=== PATIENT | female | born 1950 | race Caucasian/White ===

== ENCOUNTER 2016-07-01 09:11 | Inpatient (IN) | payer OTHER ==
[~2016-07-01] VITALS: Ht 160 cm; Wt 76.2 kg
--- NOTE | ~2016-07-01 | EKG ---
[place] [address] [facility] [place] [address] ELECTROCARDIOGRAM REPORT Name: JESUS REZAETTA Kristy Room #: 541-P ADM IN M.R.#: [id number] Admission: 07/02/16 Attend Phys: Hamida Ritter Discharge: Date of : 52 Report #: [id number] THIS REPORT FOR: //name// [facility] ED Test Date: 2016-07-01 Test Time: 10:17:21 Pat Name: ESTEE REZA Department: Room: 541 Gender: F [employer]ist: Kit COOLEY : 1950 Requested By: Dedrick Mccartney Order Number: [id number] MD: Nikolay Desai Measurements Intervals [place] Rate: 61 P: 61 MS: 130 QRS: 14 QRSD: 98 T: 23 QT: 389 QTc: 392 Interpretive Statements Sinus rhythm Abnormal R-wave progression, early transition No previous ECG available for comparison Electronically Signed On 07-03-2016 11:27:28 CDT by Nikolay Desai [email or web address] <ELECTRONICALLY SIGNED> By: Nikolay Desai MD, [facility] 07/03/16 1127 [id number] Nikolay Desai MD, FACC /EPI
[~2016-07-01 09:11] MED LIST: DIAMOX SEQUELS500 MG PO
[2016-07-01 09:13] VITALS: BP 138/61
[2016-07-01 10:12] LABS: URINE BILIRUBIN NEGATIVE (Negative); URINE BLOOD TRACE (Negative); URINE COLOR YELLOW; URINE GLUCOSE-RANDOM* NEGATIVE (Negative); URINE KETONES NEGATIVE (Negative); URINE NITRITE NEGATIVE (Negative); URINE PROTEIN (DIPSTICK) NEGATIVE (Negative); URINE UROBILINOGEN 0.2 E.U./dl (0.2-1.0)
[2016-07-01 10:23] LABS: BACTERIA 1-9 Few /HPF (None Seen); CASTS None Seen /LPF (None Seen); CRYSTALS None Seen /LPF (None Seen); SQUAMOUS 0-3 Few /LPF (0-3); URINE RBC 0-2 Rare /HPF (0-2); URINE WBC 6-15 Few /HPF (0-5)
[2016-07-01 10:24] LABS: ABSOLUTE NEUTROPHILS 7.5 thou/uL (1.4-8.2); BASOPHILS 0.5 % (0.0-2.0); EOSINOPHILS 0.6 % (0.0-3.0); HEMATOCRIT 38.7 % (37.0-47.0); HEMOGLOBIN 13.1 gm/dL (12.0-15.0); LYMPHOCYTES 14.6 % (24.0-44.0); MCH 30.1 pg (26.0-34.0); MCHC 33.9 g/dL (28.0-37.0); MCV 88.7 fL (80.0-100.0); MONOCYTES 5.7 % (1.0-8.0); PLATELET COUNT 221 thou/uL (150-400); POLYS 78.6 % (36.0-66.0); RBC 4.36 mil/uL (4.20-5.00); RDW 13.2 % (10.5-14.5); WBC 9.6 thou/uL (4.0-11.0)
[2016-07-01 10:25] LABS: MANUAL DIFF NO
[2016-07-01 10:41] LABS: ALBUMIN 3.8 g/dL (3.4-5.0); ALKALINE PHOSPHATASE 86 U/L (46-116); ANION GAP 11 mmol/L (7-16); APTT 27.4 Seconds (24.5-32.8); BUN 40 mg/dL (7-18); CALCIUM 9.5 mg/dL (8.5-10.1); CHLORIDE 97 mmol/L (98-107); CO2 27 mmol/L (21-32); CREATININE 1.5 mg/dL (0.6-1.0); GLUCOSE 186 mg/dL (74-106); MAGNESIUM 1.8 mg/dL (1.8-2.4); POTASSIUM 4.1 mmol/L (3.5-5.1); PROTIME 10.7 Seconds (9.3-11.4); SGOT 22 U/L (15-37); SGPT 34 U/L (30-65); SODIUM 135 mmol/L (136-145); TOTAL BILIRUBIN 0.5 mg/dL (<0.1-1.0); TOTAL PROTEIN 7.9 g/dL (6.4-8.2); TROPONIN-I < 0.04 ng/mL (<0.04-0.07)
[2016-07-01 12:17] VITALS: BP 139/71
[2016-07-01 20:59] VITALS: BP 119/54
[2016-07-02] MEDS ORDERED: AMLODIPINE BESY10 MG PO (06:46)
[2016-07-02] MEDS ORDERED: MAXZIDE 75-501 EACH PO (06:47)
[2016-07-02] MEDS ORDERED: LOTENSIN20 MG PO (06:48)
[2016-07-02] MEDS ORDERED: CELEXA 10 MG TA10 M1 PO (06:48)
[2016-07-02 08:37] VITALS: BP 117/53
[2016-07-02 16:14] VITALS: BP 125/50
[2016-07-02 20:00] VITALS: BP 130/55
[2016-07-03 04:00] VITALS: BP 121/58
[2016-07-03 07:30] VITALS: BP 138/53
[2016-07-03] MEDS ORDERED: HYDROCODONE-AP1 EAC6 PO (10:33)
[2016-07-03] MEDS ORDERED: COLACE100 MG PO (10:33)
[2016-07-03 10:45] VITALS: BP 138/53
[2016-07-03 10:59] VITALS: BP 138/53
== END 2016-07-03 11:30 | disposition home or self-care (01) | DRG 125 ==
LOC: ER 09:11 → EROBS 10:16 → 5S 10:16
PROVIDERS: Emergency Medicine
DX: H57.10 Ocular pain, unspecified eye (principal); N39.0 Urinary tract infection, site not specified; I10 Essential (primary) hypertension; F32.9 Major depressive disorder, single episode, unspecified; H35.342 Macular cyst, hole, or pseudohole, left eye; Z90.710 Acquired absence of both cervix and uterus; Z90.49 Acquired absence of other specified parts of digestive tract
CPT/HCPCS: 10086